=== PATIENT | male | born 1990 | race Caucasian/White ===

== ENCOUNTER 2018-01-22 17:57 | Emergency (ER) | payer OTHER ==
[2018-01-22] MEDS ORDERED: SODIUM CHLORIDE 0.9% 1,000 ML IV ONE (19:56)
[2018-01-22] MEDS ORDERED: ACETAMINOPHEN TAB 500 MG TAB PO STA (19:57)
[2018-01-22] MEDS ORDERED: IBUPROFEN 600 MG TAB PO STA (19:57)
[2018-01-22 20:21] LABS: Basophils % (A) 0 %; Eosinophils % (A) 0 %; HCT 45.1 % (39.0-53.0); HGB 15.5 gm/dL (13.0-17.5); Lymphocytes # (A) 2.6 k/uL (1.0-4.8); Lymphocytes % (A) 28 %; MCH 29.1 pg (25.0-35.0); MCHC 34.3 g/dL (31.0-37.0); MCV 84.9 fL (80.0-100.0); Monocytes # (A) 0.4 k/uL (0-1.0); Monocytes % (A) 4 %; Neutrophils % (A) 66 %; Platelet Count 186 k/uL (150-450); RBC 5.31 m/uL (4.30-5.90); RDW 13.9 % (11.5-15.5); WBC 9.2 k/uL (3.8-10.6)
[2018-01-22 20:25] LABS: Appearance,Urine Clear (Clear); Bilirubin,Urine Negative (Negative); Blood,Urine Negative (Negative); Color,Urine Light Yellow; Glucose,Urine (UA) Negative (Negative); Ketones,Urine Negative (Negative); Leukocyte Esterase,Urine Negative (Negative); Nitrite,Urine Negative (Negative); PH, Urine 6.5 (5.0-8.0); Protein,Urine Negative (Negative); Specific Gravity,Urine 1.008 (1.001-1.035); Urobilinogen,Urine <2.0 mg/dL (<2.0)
--- NOTE | 2018-01-22 20:25 | ED ---
Headache HPI - General Mode of arrival: ambulatory Limitations: no limitations <Valarie Rooney - Last Filed: 01/23/18 02:45> <Lee Ann Skelton - Last Filed: 01/23/18 06:13> - General Chief Complaint: Headache Stated Complaint: migraine/nausea Time Seen by Provider: 01/22/18 19:44 - History of Present Illness Initial Comments: 27-year-old male patient presents to the emergency department today for complaints of headache, body aches, and fever. Patient states that he returned from [facility] on Sunday. Patient states that he started feeling unwell on Sunday however symptoms worsen today. Patient states that he has a pounding headache that worsens when he changes positions. Patient states he also feels a little lightheaded when he stands up. Patient has not taking any medication for pain or fever. Patient denies any cough, congestion, sore throat, blurred vision, double vision, vomiting, or diarrhea. States that he is mildly nauseated. Denies any rash. States he did receive several mosquito bites while on vacation.Patient denies any recent rash, fever, chills, shortness breath, chest pain, abdominal pain, nausea, vomiting, diarrhea, constipation, back pain, numbness, tingling, dizziness, weakness, hematuria, dysuria, urinary urgency, urinary frequency, headache, visual changes, or any other complaints. (Valarie Rooney) - Related Data Home Medications Medication Instructions Recorded Confirmed Multivitamins, Thera [Multivitamin 1 tab PO DAILY 01/22/18 01/22/18 (formulary)] Allergies Allergy/AdvReac Type Severity Reaction Status Date / Time No Known Allergies Allergy Verified 01/22/18 19:28 Review of Systems ROS Other: All systems not noted in ROS Statement are negative. <Valarie Rooney - Last Filed: 01/23/18 02:45> ROS Other: All systems not noted in ROS Statement are negative. <Lee Ann Skelton - Last Filed: 01/23/18 06:13> ROS Statement: Those systems with pertinent positive or pertinent negative responses have been documented in the HPI. Past Medical History Past Medical History: No Reported History History of Any Multi-Drug Resistant Organisms: None Reported Past Surgical History: No Surgical Hx Reported Smoking Status: Never smoker Past Alcohol Use History: None Reported, Rare Past Drug Use History: None Reported <ToribioValarie Clement - Last Filed: 01/23/18 02:45> General Exam Limitations: no limitations <ToirbioValarie Clement - Last Filed: 01/23/18 02:45> Vital Signs 01/22/18 01/22/18 01/22/18 18:11 20:17 20:50 Temperature 101.1 F H 100.3 F H 99.6 F Pulse Rate 111 H Respiratory 18 Rate Blood Pressure 135/82 O2 Sat by Pulse 96 Oximetry 01/22/18 21:38 Temperature 99.4 F Pulse Rate 89 Respiratory 16 Rate Blood Pressure 116/61 O2 Sat by Pulse 98 Oximetry Medical Decision Making - Lab Data Result diagrams: 01/22/18 20:09 01/22/18 20:09 <Valarie Rooney - Last Filed: 01/23/18 02:45> - Lab Data Result diagrams: 01/22/18 20:09 01/22/18 20:09 <Lee Ann Skelton - Last Filed: 01/23/18 06:13> - Medical Decision Making 27-year-old male patient presented to the emergency department today for evaluation of headache and fever. Physical examination is relatively unremarkable. He is neurologically intact. Labs are obtained and showed no acute abnormalities. Patient did receive IV fluids, Tylenol, and ibuprofen here in the emergency department. Upon reevaluation patient symptoms are resolved and he is feeling much better. Patient did recently return from a trip to the [facility]. We did discuss viral syndrome as a cause for his symptoms. He is instructed follow up with his primary care physician for recheck tomorrow. Return parameters are discussed in detail. He verbalizes understanding and agrees with this plan. (Valarie Rooney) I was available for consultation in the emergency department. The history and physical exam were done by the midlevel provider. I was consulted for this patient's care. I reviewed the case with the midlevel provider and based on their presentation of the patient, I agree with the assessment, medical decision making and plan of care as documented. (Lee Ann Skelton) - Lab Data Lab Results 01/22/18 01/22/18 01/22/18 Range/Units 20:09 20:09 20:09 WBC 9.2 (3.8-10.6) k/uL RBC 5.31 (4.30-5.90) m/uL Hgb 15.5 (13.0-17.5) gm/dL Hct 45.1 (39.0-53.0) % MCV 84.9 (80.0-100.0) fL MCH 29.1 (25.0-35.0) pg MCHC 34.3 (31.0-37.0) g/dL RDW 13.9 (11.5-15.5) % Plt Count 186 (150-450) k/uL Neutrophils % 66 % Lymphocytes % 28 % Monocytes % 4 % Eosinophils % 0 % Basophils % 0 % Neutrophils # 6.0 (1.3-7.7) k/uL Lymphocytes # 2.6 (1.0-4.8) k/uL Monocytes # 0.4 (0-1.0) k/uL Eosinophils # 0.0 (0-0.7) k/uL Basophils # 0.0 (0-0.2) k/uL Sodium 135 L (137-145) mmol/L Potassium 4.3 (3.5-5.1) mmol/L Chloride 103 (98-107) mmol/L Carbon Dioxide 23 (22-30) mmol/L Anion Gap 9 mmol/L BUN 14 (9-20) mg/dL Creatinine 1.07 (0.66-1.25) mg/dL Est GFR (CKD-EPI)AfAm >90 (>60 ml/min/1.73 sqM) Est GFR (CKD-EPI)NonAf >90 (>60 ml/min/1.73 sqM) Glucose 96 (74-99) mg/dL Plasma Lactic Acid Ez 0.9 (0.7-2.0) mmol/L Calcium 9.1 (8.4-10.2) mg/dL Total Bilirubin 0.8 (0.2-1.3) mg/dL AST 24 (17-59) U/L ALT 46 (21-72) U/L Alkaline Phosphatase 45 (38-126) U/L Total Protein 7.1 (6.3-8.2) g/dL Albumin 4.3 (3.5-5.0) g/dL Urine Color Urine Appearance (Clear) Urine pH (5.0-8.0) Ur Specific [place] (1.001-1.035) Urine Protein (Negative) Urine Glucose (UA) (Negative) Urine Ketones (Negative) Urine Blood (Negative) Urine Nitrite (Negative) Urine Bilirubin (Negative) Urine Urobilinogen (<2.0) mg/dL Ur Leukocyte Esterase (Negative) 01/22/18 Range/Units 20:09 WBC (3.8-10.6) k/uL RBC (4.30-5.90) m/uL Hgb (13.0-17.5) gm/dL Hct (39.0-53.0) % MCV (80.0-100.0) fL MCH (25.0-35.0) pg MCHC (31.0-37.0) g/dL RDW (11.5-15.5) % Plt Count (150-450) k/uL Neutrophils % % Lymphocytes % % Monocytes % % Eosinophils % % Basophils % % Neutrophils # (1.3-7.7) k/uL Lymphocytes # (1.0-4.8) k/uL Monocytes # (0-1.0) k/uL Eosinophils # (0-0.7) k/uL Basophils # (0-0.2) k/uL Sodium (137-145) mmol/L Potassium (3.5-5.1) mmol/L Chloride (98-107) mmol/L Carbon Dioxide (22-30) mmol/L Anion Gap mmol/L BUN (9-20) mg/dL Creatinine (0.66-1.25) mg/dL Est GFR (CKD-EPI)AfAm (>60 ml/min/1.73 sqM) Est GFR (CKD-EPI)NonAf (>60 ml/min/1.73 sqM) Glucose (74-99) mg/dL Plasma Lactic Acid Ez (0.7-2.0) mmol/L Calcium (8.4-10.2) mg/dL Total Bilirubin (0.2-1.3) mg/dL AST (17-59) U/L ALT (21-72) U/L Alkaline Phosphatase (38-126) U/L Total Protein (6.3-8.2) g/dL Albumin (3.5-5.0) g/dL Urine Color Light Yellow Urine Appearance Clear (Clear) Urine pH 6.5 (5.0-8.0) Ur Specific [place] 1.008 (1.001-1.035) Urine Protein Negative (Negative) Urine Glucose (UA) Negative (Negative) Urine Ketones Negative (Negative) Urine Blood Negative (Negative) Urine Nitrite Negative (Negative) Urine Bilirubin Negative (Negative) Urine Urobilinogen <2.0 (<2.0) mg/dL Ur Leukocyte Esterase Negative (Negative) Disposition Is patient prescribed a controlled substance at d/c from ED?: No Time of Disposition: 21:30 <Valarie Rooney - Last Filed: 01/23/18 02:45> <Lee Ann Skelton - Last Filed: 01/23/18 06:13> Clinical Impression: Viral syndrome Disposition: HOME SELF-CARE Condition: Good Instructions: Acute Headache (ED), Viral Syndrome (ED) Additional Instructions: Increase fluids. Take Tylenol Motrin for fever control. Follow-up with her primary care physician for recheck in 1-2 days. Return here immediately for any new, worsening, or concerning symptoms. Referrals: Nonstaff,Physician [Primary Care Provider] - 1-2 days
[2018-01-22 20:36] LABS: ALT 46 U/L (21-72); AST 24 U/L (17-59); Albumin 4.3 g/dL (3.5-5.0); Alkaline Phosphatase 45 U/L (38-126); Anion Gap 9 mmol/L; Blood Urea Nitrogen 14 mg/dL (9-20); Calcium 9.1 mg/dL (8.4-10.2); Carbon Dioxide 23 mmol/L (22-30); Chloride 103 mmol/L (98-107); Glucose 96 mg/dL (74-99); Potassium 4.3 mmol/L (3.5-5.1); Sodium 135 mmol/L (137-145); Total Bilirubin 0.8 mg/dL (0.2-1.3); Total Protein 7.1 g/dL (6.3-8.2)
[2018-01-22 21:42] VITALS: BP 116/61; PULSE 89; RESP 16; TEMP 99.4
--- NOTE | 2018-01-23 08:42 | CDI ---
Documentation Clarification OP Dear Lee Ann ePrez P, DO Please do addendum to ED report that provides Need Physical Exam. Thank you, Georgina Mccord [employer] Consult[employer] If you have any questions, please contact [employer] at [phone] [facility]
== END 2018-01-22 21:45 | disposition home or self-care (01) ==
LOC: EC 17:57
DX: B34.9 Viral infection, unspecified (principal)
CPT/HCPCS: 36415; 80053; 81003; 83605; 85025; 87040; 96360; 99284

== ENCOUNTER 2018-05-03 14:00 | Emergency (ER) | payer OTHER ==
--- NOTE | 2018-05-03 14:30 | ED ---
General Adult HPI <Mikael Santiago - Last Filed: 05/03/18 18:13> - General Source: patient, RN notes reviewed Mode of arrival: ambulatory Limitations: no limitations <Viviana Tadeo - Last Filed: 05/03/18 21:10> - General Chief complaint: ENT Stated complaint: Pharyngitis, poss peritonsillar abscess-medex sent - History of Present Illness Initial comments: Patient is a 27-year-old male who presents to the emergency department with complaint of throat pain for 3 or 4 days (worse on the right). He was sent here from [place] for concern of peritonsillar abscess. He reports taking 2 extra strength Tylenol today for pain at 11 am. He reports he has had a similar episode in the past which was treated with antibiotics and steroids. Eventcheq completed a rapid strep which was negative. Admits to fevers and chills at home. Patient denies any recent difficulty breathing, difficulty controlling secretions, chest pain, back pain, abdominal pain, nausea or vomiting, numbness or tingling, headaches or visual changes, or any other complaints. (Viviana Tadeo) - Related Data Home Medications Medication Instructions Recorded Confirmed Multivitamins, Thera [Multivitamin 1 tab PO DAILY 01/22/18 01/22/18 (formulary)] Previous Rx's Medication Instructions Recorded Clindamycin [Cleocin] 450 mg PO TID 10 Days 05/03/18 predniSONE 20 mg PO DAILY 5 Days 05/03/18 Allergies Allergy/AdvReac Type Severity Reaction Status Date / Time No Known Allergies Allergy Verified 05/03/18 14:08 Review of Systems ROS Other: All systems not noted in ROS Statement are negative. <Mikael Santiago - Last Filed: 05/03/18 18:13> ROS Other: All systems not noted in ROS Statement are negative. <Viviana Tadeo - Last Filed: 05/03/18 21:10> ROS Statement: Those systems with pertinent positive or pertinent negative responses have been documented in the HPI. Past Medical History Past Medical History: No Reported History History of Any Multi-Drug Resistant Organisms: None Reported Past Surgical History: No Surgical Hx Reported Past Psychological History: No Psychological Hx Reported Smoking Status: Never smoker Past Alcohol Use History: None Reported, Rare Past Drug Use History: None Reported <Viviana Tadeo - Last Filed: 05/03/18 21:10> General Exam Limitations: no limitations General appearance: alert, in no apparent distress Head exam: Present: atraumatic, normocephalic Eye exam: Present: normal appearance, PERRL ENT exam: Present: normal external ear exam, other (Right side of oropharynx is swollen consistent with peritonsillar abscess.) Neck exam: Present: normal inspection. Absent: tenderness, lymphadenopathy Respiratory exam: Present: normal lung sounds bilaterally. Absent: wheezes, rales, rhonchi Cardiovascular Exam: Present: regular rate, normal rhythm Neurological exam: Present: alert, oriented X3 Psychiatric exam: Present: normal affect, normal mood Skin exam: Present: warm, dry <Viviana Tadeo E - Last Filed: 05/03/18 21:10> Vital Signs 05/03/18 05/03/18 05/03/18 14:07 14:24 18:04 Temperature 98.5 F 100.3 F H 100.2 F H Pulse Rate 77 97 Respiratory 20 18 Rate Blood Pressure 148/87 141/72 O2 Sat by Pulse 99 94 L Oximetry 05/03/18 20:25 Temperature 99.0 F Pulse Rate 89 Respiratory 18 Rate Blood Pressure O2 Sat by Pulse 95 Oximetry Procedures - Incision & Drainage Consent Obtained: verbal consent Time Out Performed?: Yes Site: other Size (cm): 1 (Peritonsillar Abscess) Anesthetic Used: lidocaine 1%, with epi Amount (mLs): 1 Sterile Field Used?: No Scalpel Used: #11 Needle Aspiration Performed?: Yes I&D Drainage Obtained: Pus Culture Obtained?: No Patient Tolerated Procedure: well <Mikael Santiago D - Last Filed: 05/03/18 18:13> Medical Decision Making - Lab Data Result diagrams: 05/03/18 15:22 05/03/18 15:22 <Mikael Santiago - Last Filed: 05/03/18 18:13> - Lab Data Result diagrams: 05/03/18 15:22 05/03/18 15:22 <Viviana Tadeo E - Last Filed: 05/03/18 21:10> - Medical Decision Making Peritonsillar abscesses drainage and incision was performed. Approximately 3 mL of purulent fluid was drained. Small 2 mm incision was made using 11 blade. Patient tolerated procedure well. Discussed patient case with ENT doctor professor of astronomy Dr. Jules. Patient given 3 g of Unasyn. He is given 10 mg of Decadron. ENT physician recommended clindamycin and steroids to be discharge with. He will follow-up in ENT clinic. Patient given strict return precautions. Told to return to emergency department with worsening pain, shortness of breath or difficulty breathing. (Mikael Santiago) - Lab Data Lab Results 05/03/18 05/03/18 05/03/18 Range/Units 15:22 15:22 15:22 WBC 10.0 (3.8-10.6) k/uL RBC 5.22 (4.30-5.90) m/uL Hgb 15.2 (13.0-17.5) gm/dL Hct 46.7 (39.0-53.0) % MCV 89.6 (80.0-100.0) fL MCH 29.2 (25.0-35.0) pg MCHC 32.6 (31.0-37.0) g/dL RDW 13.3 (11.5-15.5) % Plt Count 237 (150-450) k/uL Neutrophils % 69 % Lymphocytes % 22 % Monocytes % 6 % Eosinophils % 1 % Basophils % 0 % Neutrophils # 6.9 (1.3-7.7) k/uL Lymphocytes # 2.2 (1.0-4.8) k/uL Monocytes # 0.6 (0-1.0) k/uL Eosinophils # 0.1 (0-0.7) k/uL Basophils # 0.0 (0-0.2) k/uL Sodium 140 (137-145) mmol/L Potassium 4.4 (3.5-5.1) mmol/L Chloride 102 (98-107) mmol/L Carbon Dioxide 27 (22-30) mmol/L Anion Gap 11 mmol/L BUN 15 (9-20) mg/dL Creatinine 1.06 (0.66-1.25) mg/dL Est GFR (CKD-EPI)AfAm >90 (>60 ml/min/1.73 sqM) Est GFR (CKD-EPI)NonAf >90 (>60 ml/min/1.73 sqM) Glucose 98 (74-99) mg/dL Plasma Lactic Acid Ez 1.0 (0.7-2.0) mmol/L Calcium 9.7 (8.4-10.2) mg/dL Total Bilirubin 0.8 (0.2-1.3) mg/dL AST 28 (17-59) U/L ALT 52 (21-72) U/L Alkaline Phosphatase 68 (38-126) U/L Total Protein 7.7 (6.3-8.2) g/dL Albumin 4.5 (3.5-5.0) g/dL Disposition <Mikael Santiago - Last Filed: 05/03/18 18:13> Is patient prescribed a controlled substance at d/c from ED?: No <Viviana Tadeo - Last Filed: 05/03/18 21:10> Clinical Impression: Peritonsillar abscess Disposition: HOME SELF-CARE Condition: Good Instructions: Abscess Incision and Drainage (ED) Additional Instructions: Follow-up with your PCP in 1-2 days. Follow-up with ENT in 1-2 days. Please take antibiotics and steroids as prescribed. Return to the emergency department if your symptoms worsen or other concerns. Prescriptions: Clindamycin [Cleocin] 450 mg PO TID 10 Days predniSONE 20 mg PO DAILY 5 Days Referrals: Nonstaff,Physician [REFERRING] - 1-2 days Yessi Duran MD [STAFF PHYSICIAN] - 1-2 days Elvin Wilkerson DO [Doctor of Osteopathic Medicine] - 1-2 days
[2018-05-03] MEDS ORDERED: DEXAMETHASONE SOD PHOSPHATE 10 MG/ML 1 ML VIAL IM STA (14:40)
[2018-05-03] MEDS ORDERED: SODIUM CHLORIDE 0.9% 1,000 ML IV SCH (15:15)
[2018-05-03 15:39] LABS: Basophils % (A) 0 %; Eosinophils # (A) 0.1 k/uL (0-0.7); Eosinophils % (A) 1 %; HCT 46.7 % (39.0-53.0); HGB 15.2 gm/dL (13.0-17.5); Lymphocytes # (A) 2.2 k/uL (1.0-4.8); Lymphocytes % (A) 22 %; MCH 29.2 pg (25.0-35.0); MCHC 32.6 g/dL (31.0-37.0); MCV 89.6 fL (80.0-100.0); Monocytes # (A) 0.6 k/uL (0-1.0); Monocytes % (A) 6 %; Neutrophils # (A) 6.9 k/uL (1.3-7.7); Neutrophils % (A) 69 %; Platelet Count 237 k/uL (150-450); RBC 5.22 m/uL (4.30-5.90); RDW 13.3 % (11.5-15.5)
[2018-05-03 15:51] LABS: ALT 52 U/L (21-72); AST 28 U/L (17-59); Albumin 4.5 g/dL (3.5-5.0); Alkaline Phosphatase 68 U/L (38-126); Anion Gap 11 mmol/L; Blood Urea Nitrogen 15 mg/dL (9-20); Calcium 9.7 mg/dL (8.4-10.2); Carbon Dioxide 27 mmol/L (22-30); Chloride 102 mmol/L (98-107); Glucose 98 mg/dL (74-99); Potassium 4.4 mmol/L (3.5-5.1); Sodium 140 mmol/L (137-145); Total Bilirubin 0.8 mg/dL (0.2-1.3); Total Protein 7.7 g/dL (6.3-8.2)
--- NOTE | 2018-05-03 16:01 | CT ---
EXAMINATION TYPE: CT soft tissue neck w con DATE OF EXAM: 05/03/2018 COMPARISON: None HISTORY: Sore throat x couple days. CT DLP: 395.7 mGycm CONTRAST: CT scan of the neck is performed with IV Contrast, patient injected with 100 mL of Isovue 300. Contrast enhanced CT of the neck was performed from the skull base through the lung apices. AIRWAY: There is prominence of the tonsillar pillars right greater than left. Low density area within the right tonsillar pillar measuring 1.3 cm compatible with small developing abscess. Prominence of the adenoids. There is narrowing of the airway. Reactive adenopathy is seen within the internal jugul ar chains measuring 1.2 cm on the right 1.2 cm on the left. SALIVARY GLANDS: The submandibular and parotid glands are free of mass or inflammatory process. THYROID GLAND: No nodules or masses seen. LYMPH NODES: No additional adenopathy greater than 1 cm. Subcentimeter posterior triangle lymph nodes seen bilaterally. LUNG APICES: No nodule or mass is seen. OTHER: Vascular structures are patent. No significant degenerative change of the cervical spine. N o abscess seen. IMPRESSION: 1.There is prominence of the tonsillar pillars right greater than left. Low density area within the r ight tonsillar pillar measuring 1.3 cm compatible with small developing abscess. 2. Reactive adenopathy internal jugular chains bilaterally.
[2018-05-03] MEDS ORDERED: LIDOCAINE 1%-EPI 1:100,000 20 ML VIAL SQ STA (16:45)
[2018-05-03] MEDS ORDERED: AMPICILLIN-SULBACTAM 3 GM in SODIUM CHLORIDE 0.9% 100 ML IVPB STA (16:49)
[2018-05-03] MEDS ORDERED: BENZOCAINE SPRAY 1 CAN MUCOUS MEM ONE (17:06)
[2018-05-03] MEDS ORDERED: LIDOCAINE 1% INJ 10MG/ML (20 ML MDV) SQ STA (17:20)
[2018-05-03 18:06] VITALS: BP 141/72; RESP 18
[2018-05-03] MEDS ORDERED: ACETAMINOPHEN TAB 500 MG TAB PO STA (18:29)
[2018-05-03 20:27] VITALS: PULSE 89; TEMP 99
== END 2018-05-03 20:43 | disposition home or self-care (01) ==
LOC: EC 14:00
DX: J36 Peritonsillar abscess (principal); Z53.8 Procedure and treatment not carried out for other reasons
CPT/HCPCS: 36415; 80053; 83605; 85025; 87040; 70491; 99283; 42700; 96365; 96361 ×2; 96372; J1100; J2001; J0295; Q9967